=== PATIENT | female | born 1945 | race Caucasian/White ===

== ENCOUNTER → 2024-01-21 08:27 | Outpatient (REF) | payer OTHER, SELFPAY | LOC: WDC 08:27 | PROVIDERS: ATTENDING PHYSICIAN Family Medicine; FAMILY PHYSICIAN Internal Medicine | DX: N63.20 Unspecified lump in the left breast, unspecified quadrant (principal); N63.21 Unspecified lump in the left breast, upper outer quadrant | CPT/HCPCS: 76642 ==